=== PATIENT | male | born 1980 | race Caucasian/White ===

== ENCOUNTER 2021-01-11 17:44 | Emergency (ER) | payer OTHER ==
--- NOTE | 2021-01-11 19:14 | XRAY Report ---
PROCEDURE: Ribs w/PA Chest LT INDICATIONS: l rib pain TECHNIQUE: 2 views of the left ribs were acquired, along with a single view chest. COMPARISON: None FINDINGS: Surgical changes and devices: None. Bones and chest wall: No fractures or dislocations. No suspicious bony lesions. Overlying soft tis sues appear unremarkable. Lungs and pleura: No pleural effusions or pneumothorax. Lungs appear clear. Mediastinum: Mediastinal contours appear normal. Heart size is normal. IMPRESSION: 1. No displaced fractures. 2. No radiographic evidence of underlying chest trauma. Reviewed by: Gavi Christy MD on 01/11/2021 7:13 PM PST Approved by: Gavi Christy MD on 01/11/2021 7:13 PM PST Station ID: [id number]
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
[2021-01-11] MEDS: HYDROcod/ACET 5/325 Prepack 4 PO STA (19:17)
[2021-01-11 19:25] VITALS: BP 130/80
== END 2021-01-11 19:24 | disposition home or self-care (01) ==
LOC: ED 17:44
DX: S20.212A Contusion of left front wall of thorax, initial encounter (principal); W22.8XXA Striking against or struck by other objects, initial encounter; Y93.E6 Activity, residential relocation; F17.200 Nicotine dependence, unspecified, uncomplicated
CPT/HCPCS: 99283; 99284

== ENCOUNTER 2021-01-14 11:11 | Emergency (ER) | payer OTHER ==
[2021-01-14 11:49] LABS: BASOPHILS # (AUTO) 0.1 10^3/uL (0.0-0.1); BASOPHILS % (AUTO) 0.6 %; EOSINOPHILS % (AUTO) 0.5 %; HCT - HEMATOCRIT 45.8 % (42.0-52.0); HGB - HEMOGLOBIN 15.8 g/dL (14.0-18.0); LYMPHOCYTES # (AUTO) 2.5 10^3/uL (1.5-3.5); LYMPHOCYTES % (AUTO) 32.8 %; MEAN CORPUSCULAR HGB CONC 34.5 g/dL (32.0-36.0); MEAN PLATELET VOLUME 10.6 fL (7.4-11.4); MONOCYTES # (AUTO) 0.4 10^3/uL (0.0-1.0); MONOCYTES % (AUTO) 4.7 %; NEUTROPHILS # (AUTO) 4.7 10^3/uL (1.5-6.6); NEUTROPHILS % (AUTO) 61.3 %; PLT - PLATELET COUNT 150 10^3/uL (130-450); RED BLOOD COUNT 5.09 10^6/uL (4.70-6.10); RED CELL DISTRIBUTION WIDTH 12.4 % (12.0-15.0); WHITE BLOOD COUNT 7.7 x10^3/uL (4.8-10.8)
[2021-01-14] MEDS ORDERED: HYDROmorphone 1 MG/ML CARPUJECT IM STA (11:59)
--- NOTE | 2021-01-14 12:00 | XRAY Report ---
PROCEDURE: Chest 1 View X-Ray INDICATIONS: Chest Pain TECHNIQUE: One view of the chest was acquired. COMPARISON: Chest x-ray 12/04/2013, x-ray RIBS series 01/11/2021 FINDINGS: Surgical changes and devices: None. Lungs and pleura: No pleural effusions or pneumothorax. Lungs are clear. Mediastinum: Mediastinal contours appear normal. Heart size is normal. Bones and chest wall: No suspicious bony lesions. Overlying soft tissues appear unremarkable. IMPRESSION: No acute pulmonary process. Reviewed by: Meredith Duke MD on 01/14/2021 11:59 AM [facility] Approved by: Meredith Duke MD on 01/14/2021 11:59 AM [facility] Station ID: [id number]
[2021-01-14 12:02] LABS: ALBUMIN 4.5 g/dL (3.2-5.5); ALBUMIN/GLOBULIN RATIO 1.5 (1.0-2.2); BILIRUBIN,TOTAL 0.5 mg/dL (0.2-1.0); CALCIUM 9.3 mg/dL (8.5-10.3); CREATININE 0.6 mg/dL (0.6-1.2); POTASSIUM 3.9 mmol/L (3.5-5.0); TOTAL PROTEIN 7.6 g/dL (6.7-8.2)
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
[2021-01-14] MEDS ORDERED: IOVERSOL 320 100 ML VIAL IVP ONE ×2 (14:15→18:37)
--- NOTE | 2021-01-14 15:01 | CT Report ---
PROCEDURE: ANGIO CHEST W/WO INDICATIONS: d-dimer; pleuritic pain; recent chest contusion CONTRAST: IV CONTRAST: Optiray 320 ml: 80 PO CONTRAST: *NO PO CONTRAST TECHNIQUE: After the administration of intravenous contrast, 2 mm axial images were acquired from the pulmonary apices to the posterior costophrenic angles during the arterial phase. In addition, 1 mm lung kernel and 5 mm soft tissue kernel reconstructions were performed. 3-dimensional coronal oblique maximum int ensity projection (MIP) reformats, 8 mm axial MIP, and 5 mm coronal and sagittal MPR reformats were t hen performed through the thorax. For radiation dose reduction, the following was used: automated exp osure control, adjustment of mA and/or kV according to patient size. COMPARISON: Chest radiograph 01/14/2021 FINDINGS: Image quality: There is reflux of contrast material into the veins of the left shoulder and left ches t wall, which likely contributes to suboptimal timing of pulmonary artery opacification. Pulmonary arteries: Pulmonary arteries are normal in size, and demonstrate no intraluminal filling d efects to suggest central pulmonary embolism. Some of the smaller subsegmental pulmonary artery bran ches are not well opacified with contrast material cannot be optimally assessed. Lungs and pleura: Lungs are clear. No pleural effusions or pneumothorax. Central and peripheral ai rways are patent. Mediastinum: Heart size is normal, without pericardial effusion. No mediastinal or hilar adenopathy . Thoracic aorta is normal in caliber and enhancement. Esophagus is normal in caliber, without hiat al hernia. Bones and chest wall: No suspicious bony lesions. Ribs and thoracic spine appear intact throughout. No axillary or supraclavicular adenopathy. The thyroid is normal in size and there are no incident al findings. Abdomen: Visualized upper abdominal solid organs appear normal in the early arterial phase of enhanc ement. IMPRESSION: 1.No acute central pulmonary embolus. However, there is suboptimal timing of the contrast bolus, and a small peripheral pulmonary embolus cannot be entirely excluded. 2.No acute abnormality is seen in the chest. Reviewed by: Rishi Santos MD on 01/14/2021 2:59 PM PST Approved by: Rishi Santos MD on 01/14/2021 2:59 PM PST Station ID: [id number]
[2021-01-14 15:27] VITALS: BP 127/86
== END 2021-01-14 15:31 | disposition home or self-care (01) ==
LOC: ED 11:11
DX: R07.89 Other chest pain (principal); W20.8XXA Other cause of strike by thrown, projected or falling object, initial encounter; Y93.89 Activity, other specified; F17.200 Nicotine dependence, unspecified, uncomplicated
CPT/HCPCS: 36415; 71045; 71275; 80053; 83690; 84484; 85025; 85379; 93005; 96372; 99284; J1170; Q9967

== ENCOUNTER 2021-12-18 12:06 | Outpatient (CLI) | payer OTHER ==
--- NOTE | 2021-12-18 14:27 | XRAY Report ---
PROCEDURE: Ankle 3 View RT INDICATIONS: PAIN OF RIGHT ANKLE JOINT TECHNIQUE: 3 views of the ankle were acquired. COMPARISON: None FINDINGS: Bones: No fractures or dislocations. Ankle mortise is normally aligned. No suspicious bony lesions . Soft tissues: Small tibiotalar joint effusion. Achilles tendon appears normal. Mild soft tissue swe lling over the lateral malleolus. IMPRESSION: 1. Small joint effusion and mild lateral soft tissue swelling suggestive of sprain. Reviewed by: Gavi Christy MD on 12/18/2021 1:25 PM [id number] Approved by: Gavi Christy MD on 12/18/2021 1:25 PM [facility] Station ID: [id number]
== END 2021-12-18 12:07 | disposition home or self-care (01) ==
LOC: DI 12:06
PROVIDERS: ATTEND Physician Assistant
DX: M25.571 Pain in right ankle and joints of right foot (principal); M25.471 Effusion, right ankle; M79.89 Other specified soft tissue disorders; Y99.0 Civilian activity done for income or pay

== ENCOUNTER 2023-08-17 13:08 | Outpatient (CLI) | payer OTHER | END 2023-08-17 23:59 | disposition left against medical advice (07) | LOC: EMS 13:08 | DX: R00.0 Tachycardia, unspecified (principal) ==